=== PATIENT | male | born 1985 | race Caucasian/White ===

== ENCOUNTER 2025-06-22 11:04 | Emergency (ER) | payer SELFPAY ==
[2025-06-22] MEDS ORDERED: Ibuprofen 800 MG TAB ONE (13:35)
[2025-06-22] MEDS ORDERED: Cyclobenzaprine 10 MG TAB ONE (13:35)
== END 2025-06-22 14:12 | disposition home or self-care (01) ==
LOC: MADERS 11:04
DX: S39.012A Strain of muscle, fascia and tendon of lower back, initial encounter (principal); S90.212A Contusion of left great toe with damage to nail, initial encounter; S80.212A Abrasion, left knee, initial encounter; S80.211A Abrasion, right knee, initial encounter; S60.511A Abrasion of right hand, initial encounter; V29.99XA Rider (driver) (passenger) of other motorcycle injured in unspecified traffic accident, initial encounter
CPT/HCPCS: 70450; 71250; 72125; 74176